=== PATIENT | female | born 1950 | race Caucasian/White ===

== ENCOUNTER 2023-03-17 00:50 | Emergency (ER) | payer MEDICARE ==
[2023-03-17] MEDS ORDERED: Lisinopril 10 MG Tab ONE (01:30)
[2023-03-17] MEDS: cloNIDine 0.1 MG Tab PO STA (01:30)
[2023-03-17 01:52] LABS: BASOPHILS ABSOLUTE AUTO 0.03 10^3/uL (0.00-0.50); BASOPHILS PERCENT AUTO 0.3 % (0-1); EOSINOPHILS ABSOLUTE AUTO 0.27 10^3/uL (0.00-1.50); EOSINOPHILS PERCENT AUTO 2.8 % (0-6); HEMATOCRIT 36.2 % (37.0-47.0); HEMOGLOBIN 11.4 g/dL (12.0-16.0); LYMPHOCYTES ABSOLUTE AUTO 3.93 10^3/uL (0.60-5.00); LYMPHOCYTES PERCENT AUTO 41.2 % (24-44); MEAN CORPUSCULAR HEMOGLOBIN 25.2 pg (27.0-32.0); MEAN CORPUSCULAR HGB CONC 31.5 g/dL (32.0-36.0); MEAN CORPUSCULAR VOLUME 80.1 fL (83.0-97.0); MONOCYTES ABSOLUTE AUTO 0.54 10^3/uL (0.00-1.50); MONOCYTES PERCENT AUTO 5.7 % (0-10); NEUTROPHILS ABSOLUTE AUTO 4.77 x10^3/uL (1.80-8.00); PLATELET COUNT,PLT 251 10^3/uL (150-400); RED BLOOD CELL COUNT 4.52 x10^6/uL (4.00-5.50); WHITE BLOOD CELL COUNT,WBC 9.5 10^3/uL (4.0-11.0)
[2023-03-17 01:52] LABS: APPEARANCE,URINE CLEAR (CLEAR); BILIRUBIN,URINE NEGATIVE (NEGATIVE); COLOR,URINE YELLOW (YELLOW); GLUCOSE,URINE NEGATIVE (NEGATIVE); KETONES,URINE NEGATIVE (NEGATIVE); LEUKOCYTE ESTERASE,URINE NEGATIVE (NEGATIVE); NITRITE,URINE NEGATIVE (NEGATIVE); OCCULT BLOOD,URINE NEGATIVE (NEGATIVE); PROTEIN,URINE NEGATIVE (NEGATIVE); UROBILINOGEN,URINE 0.2 EU/dL (0.2-1.0)
[2023-03-17 02:07] LABS: ALBUMIN 3.3 g/dL (3.4-5.0); BILIRUBIN TOTAL 0.4 mg/dL (0.0-1.0); C-REACTIVE PROTEIN 1.81 mg/dL (<=0.30); CALCIUM 9.2 mg/dL (8.4-10.1); CREATININE 1.5 mg/dL (0.6-1.0); EST CRCL DRUG DOSING (CG) 28.04 mL/min; POTASSIUM,K 4.1 mEq/L (3.5-5.0); PROTEIN TOTAL,TP 7.5 g/dL (6.4-8.2)
[2023-03-17] MEDS: Lisinopril 10 MG Tab PO ONE (03:25)
== END 2023-03-17 03:26 | disposition home or self-care (01) ==
LOC: CC.ED 00:50
DX: I16.0 Hypertensive urgency (principal); R74.8 Abnormal levels of other serum enzymes; Z88.1 Allergy status to other antibiotic agents; Z98.890 Other specified postprocedural states
CPT/HCPCS: 36415; 70450; 71046; 80053; 81003; 84484; 85025; 86140; 93005; 93010; 99284; A9270-GY